=== PATIENT | male | born 1990 | race Two or more races ===

== ENCOUNTER 2021-03-10 17:13 | Inpatient (IN) | payer OTHER ==
[2021-03-10 19:15] VITALS: BMI 18.1
[2021-03-10] MEDS ORDERED: IBUPROFEN 400 MG TABLET (FP) PO PRN (23:49)
[2021-03-10] MEDS ORDERED: ACETAMINOPHEN 325 MG TABLET (FP) PO PRN ×2 (23:49)
[2021-03-10] MEDS ORDERED: MAGNESIUM HYDROX 2400MG/30ML ORAL SUSPENSION 30 ML CUP PO PRN (23:49)
[2021-03-10] MEDS ORDERED: BISMUTH SUBSALICYLATE 524 MG/30 ML PO PRN (23:49)
[2021-03-10] MEDS ORDERED: NICOTINE 10 MG CARTRIDGE (INHALER) IH PRN (23:49)
[2021-03-10] MEDS ORDERED: MAG HYDROX/AL HYDROX/SIMETH 30 ML UNIT-DOSE CUP PO PRN (23:49)
[2021-03-10] MEDS ORDERED: MENTHOL/PHENOL 1 EACH UD MM PRN (23:49)
[2021-03-10] MEDS ORDERED: MAGNESIUM CITRATE 300 ML BOTTLE PO PRN (23:49)
[2021-03-11] MEDS ORDERED: methaDONE HCL 10 MG TABLET (FOR DETOX USE ONLY) PO ONE (00:01)
[2021-03-11] MEDS ORDERED: cloNIDine HCL 0.1 MG TABLET PO PRN (00:01)
[2021-03-11] MEDS ORDERED: methaDONE HCL 10 MG TABLET (FOR DETOX USE ONLY) ONE (00:56)
[2021-03-11] MEDS: ONDANSETRON *ODT* 4 MG TABLET SL PRN (02:38)
[2021-03-11] MEDS: diazePAM 5 MG TABLET PO SCH ×4 (06:45→22:39)
[2021-03-11] MEDS: PRENATAL VITAMINS W/ FOLIC ACID TABLET (FP) PO SCH (10:43)
[2021-03-11] MEDS: diazePAM 5 MG TABLET PO PRN (13:44)
[2021-03-11] MEDS: METHOCARBAMOL 500 MG TABLET PO PRN (17:50)
[2021-03-11] MEDS ORDERED: MELATONIN 5 MG TABLETS PO SCH (22:00)
[2021-03-11] MEDS: MIRTAZAPINE 15 MG TABLET (FP) PO SCH (22:38)
[2021-03-11] MEDS: THIAMINE HCL 100 MG TABLET (FP) PO SCH (22:38)
[2021-03-12] MEDS: ONDANSETRON *ODT* 4 MG TABLET SL PRN (03:49)
[2021-03-12] MEDS: diazePAM 5 MG TABLET PO SCH ×3 (06:32→22:15)
[2021-03-12] MEDS ORDERED: methaDONE HCL 10 MG TABLET (FOR DETOX USE ONLY) ONE (09:35)
[2021-03-12] MEDS: diazePAM 5 MG TABLET PO PRN ×2 (09:36→17:49)
[2021-03-12] MEDS: PRENATAL VITAMINS W/ FOLIC ACID TABLET (FP) PO SCH (09:39)
[2021-03-12 12:33] LABS: BILIRUBIN,TOTAL 0.6 mg/dL (0.2-1); BLOOD UREA NITROGEN 14.7 mg/dL (7-18); CALCIUM 9.4 mg/dL (8.5-10.1); CREATININE 0.9 mg/dL (0.55-1.3); TOT PROT 10.5 g/dl (6.4-8.2)
[2021-03-12] MEDS: METHOCARBAMOL 500 MG TABLET PO PRN ×2 (13:45→22:14)
[2021-03-12] MEDS: TRIMETHOBENZAMIDE HCL 200MG/2ML INJ IM PRN (14:27)
[2021-03-12] MEDS: MIRTAZAPINE 15 MG TABLET (FP) PO SCH (22:14)
[2021-03-12] MEDS: THIAMINE HCL 100 MG TABLET (FP) PO SCH (22:14)
[2021-03-13] MEDS: diazePAM 5 MG TABLET PO PRN ×3 (02:03→14:51)
[2021-03-13] MEDS: TRIMETHOBENZAMIDE HCL 200MG/2ML INJ IM PRN (04:58)
[2021-03-13] MEDS: diazePAM 5 MG TABLET PO SCH ×2 (05:10→17:49)
[2021-03-13] MEDS ORDERED: methaDONE HCL 10 MG TABLET (FOR DETOX USE ONLY) PO ONE (10:00)
[2021-03-13] MEDS: PRENATAL VITAMINS W/ FOLIC ACID TABLET (FP) PO SCH (10:06)
[2021-03-13] MEDS: METHOCARBAMOL 500 MG TABLET PO PRN (10:08)
[2021-03-13 17:25] VITALS: BP 127/80; PULSE 85; TEMP 97.3
[2021-03-14] MEDS ORDERED: diazePAM 5 MG TABLET PO ONE (06:00)
[2021-03-15] MEDS ORDERED: methaDONE HCL 10 MG TABLET (FOR DETOX USE ONLY) PO ONE (10:00)
== END 2021-03-13 18:48 | disposition left against medical advice (07) | DRG 770 ==
LOC: YASAS 17:13 → Y3N 03-11 01:22
PROVIDERS: ADMIT Allergy & Immunology; ATTEND Allergy & Immunology
PROC: HZ2ZZZZ Detoxification Services for Substance Abuse Treatment (ICD-10-PCS; principal; 2021-03-11)
DX: F11.23 Opioid dependence with withdrawal (principal); F13.230 Sedative, hypnotic or anxiolytic dependence with withdrawal, uncomplicated; F14.20 Cocaine dependence, uncomplicated; F17.210 Nicotine dependence, cigarettes, uncomplicated; F19.282 Other psychoactive substance dependence with psychoactive substance-induced sleep disorder; F19.24 Other psychoactive substance dependence with psychoactive substance-induced mood disorder; F41.8 Other specified anxiety disorders; F32.A Depression, unspecified; G40.909 Epilepsy, unspecified, not intractable, without status epilepticus; B18.2 Chronic viral hepatitis C; Z62.810 Personal history of physical and sexual abuse in childhood; Z56.0 Unemployment, unspecified; Z59.00 Homelessness unspecified
CPT/HCPCS: 36415; 80053; 93005; 93010; C9803; Q0162; U0003; U0005